=== PATIENT | male | born 1990 | race Native Hawaiian/Other Pacific Islander ===

== ENCOUNTER 2018-04-24 23:15 | Emergency (ER) | payer BC ==
[2018-04-24 23:20] VITALS: BP 125/80; PULSE 70; TEMP 98.5; O2SAT 100
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
[2018-04-25 01:06] VITALS: RESP 20
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
== END 2018-04-25 00:43 | disposition home or self-care (01) ==
LOC: C.ER 23:15
DX: S40.012A Contusion of left shoulder, initial encounter (principal); V49.49XA Driver injured in collision with other motor vehicles in traffic accident, initial encounter; W22.11XA Striking against or struck by driver side automobile airbag, initial encounter; Y92.410 Unspecified street and highway as the place of occurrence of the external cause